=== PATIENT | male | born 1935 | race Caucasian/White ===

== ENCOUNTER 2016-10-10 18:32 | Inpatient (IN) ==
--- NOTE | 2016-10-10 18:47 | Emergency Department Note ---
Disposition Clinical Impression: Cellulitis, Diabetic foot ulcer, DM type 2 (diabetes mellitus, type 2) Disposition: Admitted As Inpatient Condition: Fair Time of Disposition: 19:47 ([facility]) Lower Extremity Injury HPI - General Chief Complaint: ED Extremity Injury, Lower Stated Complaint: foot injury and swelling Time Seen by Provider: 10/10/16 18:33 Source: patient Mode of arrival: ambulatory Limitations: no limitations Nursing Notes Reviewed: Yes Vital Signs Reviewed: Yes - History of Present Illness HPI Narrative: Patient seen earlier this week diagnosis puncture wound of the foot now has an ulceration developing on the plantar aspect that despite being told not to do anything when out and cut the ER denies redness swelling and edema to the right lower extremity patient states pain or tenderness noted but the streaking is coming from the ulceration on the plantar aspect of the foot he denies though any other injury or complaint diabetic Injury location: Right foot Onset (ago): day(s) (3) Mechanism of Injury: other (Foot ulcerations) Context: walking Place: home, street/outdoors Pain Severity: moderate Pain Scale: 5 Improves with: nothing Worsens with: weight bearing, movement Associated symptoms: Reports: able to partially bear weight, swelling Treatments prior to arrival: other (antibiotics) - Related Data Home Medications Medication Instructions Recorded Confirmed Glimepiride [Amaryl] 4 mg PO DAILY 09/10/15 10/10/16 Torsemide [Demadex] 20 mg PO DAILY 01/21/16 10/10/16 Previous Rx's Medication Instructions Recorded Amoxicillin/Clavulanate [Augmentin] 500 mg PO BIDWM #20 tablet 10/09/16 HydrOXYzine Pamoate [Vistaril] 50 mg PO HS #7 capsule 10/09/16 Tramadol HCl [Ultram] 50 mg PO QID PRN #10 tab 10/09/16 Allergies Allergy/AdvReac Type Severity Reaction Status Date / Time No Known Allergies Allergy Verified 01/21/16 09:30 All systems ED: reviewed and negative except as stated. Review of Systems: As Per HPI Constitutional: Denies: fever, chills, weakness Eyes: Denies: eye pain ENT ED: Denies: congestion Cardiovascular: Denies: chest pain Respiratory: Denies: cough Gastrointestinal: Denies: abdominal pain Genitourinary: Denies: urgency Musculoskeletal: Reports: arthralgia, myalgia Integumentary: Reports: lesions Neurological: Denies: headache Psychiatric: Denies: anxiety Endocrine: Denies: fatigue Hematological/Lymphatic: Denies: easy bleeding Allergic/Immunologic: Denies: facial swelling Past Medical History - Past Medical History Attestation: Yes The following information was validated with the patient. Source: patient, old records reviewed, nursing notes reviewed Medical history: Reports: arthritis, coronary artery disease, diabetes, GERD, hyperlipidemia, hypertension, myocardial infarction, peripheral artery disease Surgical history: Reports: appendectomy, coronary bypass (CABG), herniorrhaphy, LE vascular intervention, orthopedic, other (Left hand surgery, left great toe amputation, right great toe partial amputation) Psychiatric history: Reports: no psych history - Social History Smoking Status: Never smoker Smokeless Tobacco Status: No Alcohol use: Reports: none Drug use: Reports: none Physical Exam - General Limitations: no limitations General appearance: alert, in no apparent distress - Head Head exam: atraumatic, normocephalic, normal inspection - Eye Eye exam: Present: normal appearance, PERRL, EOMI - ENT ENT exam: normal exam, normal oropharynx, mucous membranes moist, normal external ear exam - Neck Neck exam: Present: normal inspection, full ROM, trachea midline - Chest Chest inspection: Present: normal inspection, symmetric chest wall rise - Respiratory Respiratory exam: Present: normal lung sounds bilaterally - Cardiovascular Cardiovascular exam: Present: regular rate, normal rhythm, normal heart sounds - Abdominal Exam Abdominal exam: Present: soft, Non-Tender, normal bowel sounds. Absent: mass, pulsatile mass - Expanded Upper Extremity Exam Shoulder exam: Present: normal inspection, full ROM Arm exam: Present: normal inspection, full ROM Elbow exam: Present: normal inspection, full ROM Forearm/Wrist exam: Present: normal inspection, full ROM Hand exam: Present: normal inspection, full ROM Neurosensory exam: Normal: radial nerve, ulnar nerve, median nerve Vascular exam: Normal: capillary refill, radial pulse, ulnar pulse - Expanded Lower Extremity Exam Hip/Pelvis exam: Present: normal inspection, full ROM Upper leg exam: Present: normal inspection, full ROM Knee exam: Present: normal inspection, full ROM Lower leg exam: Present: normal inspection, full ROM, swelling, erythema. Absent: Homans' sign Ankle exam: Present: normal inspection, full ROM, tenderness, swelling, erythema Foot/toe exam: Present: normal inspection, full ROM, tenderness, swelling, erythema 1 - Semicircular circular ulcer on the plantar aspect of the hook through the dermis extending down into the deep dermal tissue into the fatty tissue Neurovascular/Tendon exam: Present: normal capillary refill, normal fine/light touch. Absent: motor deficit, sensory deficit, tendon deficit - Back Exam Back exam: Present: normal inspection, full ROM. Absent: muscle spasm - Neurological Exam Neurological exam: Present: alert, oriented X3, CN II-XII intact - Psychiatric Psychiatric exam: Present: normal affect, normal mood - Skin Skin exam: Present: warm, dry, intact, normal color Course Course Narrative: Patient seen and examined vancomycin and discharged home in stable Vital Signs Temperature 98.1 F 10/10/16 18:33 Pulse Rate 73 10/10/16 18:33 Respiratory Rate 16 10/10/16 18:33 Blood Pressure 147/66 10/10/16 18:33 O2 Sat by Pulse Oximetry 97 10/10/16 18:33 Temperature 98.1 F 10/10/16 18:33 Pulse Rate 58 10/10/16 19:37 Respiratory Rate 16 10/10/16 19:57 Blood Pressure 146/77 10/10/16 19:57 O2 Sat by Pulse Oximetry 97 10/10/16 19:37 Oxygen Delivery Oxygen Delivery Room Air Extremity Injury, Lower - MDM Narrative Medical decision making narrative: Cellulitis as a result of failed outpatient therapy due to the patient being noncompliant out mowing the yard and a lot of walking having redness and streaking up the leg - Differential Diagnosis Likely: puncture wound - Medical Records Medical records reviewed: Yes I reviewed the patient's medical records. - Lab Data Lab results reviewed: Yes I reviewed the patient's lab results. Result diagrams: 10/10/16 19:20 10/10/16 19:20 Lab Results 10/10/16 10/10/16 10/10/16 Range/Units 19:20 19:20 19:20 WBC 5.4 (4.3-11.1) K/mcL RBC 4.02 L (4.19-5.50) M/mcL Hgb 11.7 L (12.9-16.9) g/dL Hct 35.5 L (37.5-50.1) % MCV 88.3 (83.0-100.0) fL MCH 29.1 (28.0-33.3) pg MCHC 33.0 (31.6-35.5) g/dL RDW 12.7 (11.5-14.5) % Plt Count 115 L (140-400) K/mcL MPV 13.3 H (9.4-12.4) fL Immature Gran % 0.2 (0-4) % Seg Neutrophils % 53.5 % Lymphocytes % 33.5 % Monocytes % 10.7 % Eosinophils % 1.7 % Basophils % 0.4 % Neutrophils # 2.9 (1.6-8.9) K/mcL Lymphocytes # 1.8 (0.6-4.6) K/mcL Monocytes # 0.6 (0.0-1.3) K/mcL Eosinophils # 0.1 (0.0-0.6) K/mcL Basophils # 0.0 (0.0-0.2) K/mcL PT 12.5 H (9.4-12.1) Seconds INR 1.2 APTT 29.8 (26.0-36.0) Seconds Sodium 139 (136-145) mEq/L Potassium 4.3 (3.5-4.5) mEq/L Chloride 108 (98-109) mEq/L Carbon Dioxide 22 (19-29) mEq/L BUN 20 (8-26) mg/dL Creatinine 0.95 (0.72-1.25) mg/dL Est GFR ( Amer) > 60 (> 60) Est GFR (Non-Af Amer) > 60 (> 60) BUN/Creatinine Ratio 21 (6-26) Glucose 177 H (70-99) mg/dL Calculated Osmolality 295 (280-300) Calcium 8.7 (8.6-10.8) mg/dL Critical Care Time Critical Care Time: No
[2016-10-10] MEDS ORDERED: Vancomycin 1,000 MG in D5% in Water 250 ML IVPB ONE (19:11)
[2016-10-10] MEDS ORDERED: 0.9 % Sodium Chloride 1,000 ML IVC SCH (19:15)
[2016-10-10 19:33] LABS: Basophils % 0.4 %; Eosinophils # 0.1 K/mcL (0.0-0.6); Eosinophils % 1.7 %; Hematocrit 35.5 % (37.5-50.1); Hemoglobin 11.7 g/dL (12.9-16.9); Immature Granulocytes % 0.2 % (0-4); Lymphocytes # 1.8 K/mcL (0.6-4.6); Lymphocytes % 33.5 %; Mean Corpuscular Hemoglobin 29.1 pg (28.0-33.3); Mean Corpuscular Volume 88.3 fL (83.0-100.0); Mean Platelet Volume 13.3 fL (9.4-12.4); Monocytes # 0.6 K/mcL (0.0-1.3); Monocytes % 10.7 %; Neutrophils # 2.9 K/mcL (1.6-8.9); Platelet Count 115 K/mcL (140-400); Red Blood Count 4.02 M/mcL (4.19-5.50); Red Cell Distribution Width 12.7 % (11.5-14.5); Segmented Neutrophils % 53.5 %
[2016-10-10 19:38] LABS: INR 1.2; Prothrombin Time 12.5 Seconds (9.4-12.1)
[2016-10-10 19:41] LABS: Activated Partial Thrombo Time 29.8 Seconds (26.0-36.0)
[2016-10-10 19:48] LABS: BUN/Creatinine Ratio 21 (6-26); Blood Urea Nitrogen 20 mg/dL (8-26); Calcium 8.7 mg/dL (8.6-10.8); Carbon Dioxide 22 mEq/L (19-29); Chloride 108 mEq/L (98-109); Glucose 177 mg/dL (70-99); Osmolality,Calculated 295 (280-300); Potassium 4.3 mEq/L (3.5-4.5); Sodium 139 mEq/L (136-145); eGFR For African Americans > 60 (> 60); eGFR For Non-African Americans > 60 (> 60)
[2016-10-10] MEDS ORDERED: Dextrose Gel 15 GM PO PRN ×2 (20:54)
[2016-10-10] MEDS ORDERED: Naloxone 0.4 MG/ML INJ IVP PRN (20:54)
[2016-10-10] MEDS ORDERED: *HR* Dextrose 50 % in Water (Syg) 50 ML SYRINGE IVP PRN (20:54)
[2016-10-10] MEDS ORDERED: traMADol 50 MG TABLET PO PRN (20:54)
[2016-10-10] MEDS ORDERED: D5% in Water 1,000 ML IVC PRN (20:54)
[2016-10-10] MEDS ORDERED: Ondansetron ODT 4 MG TAB.RAPDIS SL PRN (20:54)
[2016-10-11] MEDS: 0.9 % Sodium Chloride 1,000 ML IVC SCH ×2 (03:35→07:15)
[2016-10-11] MEDS: hydrOXYzine pamoate 25 MG CAPSULE PO SCH ×2 (03:35→21:49)
[2016-10-11 05:40] LABS: Basophils % 0.3 %; Eosinophils # 0.1 K/mcL (0.0-0.6); Eosinophils % 2.3 %; Hematocrit 33.9 % (37.5-50.1); Immature Granulocytes % 0.3 % (0-4); Lymphocytes # 1.4 K/mcL (0.6-4.6); Lymphocytes % 39.4 %; Mean Corpuscular HGB Conc 32.4 g/dL (31.6-35.5); Mean Corpuscular Hemoglobin 28.9 pg (28.0-33.3); Mean Corpuscular Volume 89.2 fL (83.0-100.0); Mean Platelet Volume 13.3 fL (9.4-12.4); Monocytes # 0.4 K/mcL (0.0-1.3); Monocytes % 10.9 %; Neutrophils # 1.6 K/mcL (1.6-8.9); Red Cell Distribution Width 12.9 % (11.5-14.5); Segmented Neutrophils % 46.8 %
[2016-10-11 05:43] LABS: Platelet Count 98 K/mcL (140-400)
[2016-10-11 05:59] LABS: BUN/Creatinine Ratio 18 (6-26); Blood Urea Nitrogen 15 mg/dL (8-26); Calcium 8.2 mg/dL (8.6-10.8); Carbon Dioxide 22 mEq/L (19-29); Chloride 111 mEq/L (98-109); Glucose 135 mg/dL (70-99); Osmolality,Calculated 295 (280-300); Potassium 3.9 mEq/L (3.5-4.5); Sodium 141 mEq/L (136-145); eGFR For African Americans > 60 (> 60); eGFR For Non-African Americans > 60 (> 60)
[2016-10-11] MEDS: Insulin LISPRO 300 UNITS/3 ML VIAL SQ SCH ×3 (07:14→15:33)
[2016-10-11] MEDS: Torsemide 20 MG TABLET PO SCH (08:10)
[2016-10-11] MEDS: *HR* Glimepiride 2 MG TABLET PO SCH (08:10)
--- NOTE | 2016-10-11 10:38 | Internal Med History&Physical ---
Date of Encounter: 10/11/16 Time of Encounter: 10:10 Assessment and Plan (1) Puncture wound of foot Current visit: No Status: Acute He received tetanus injection in the emergency room October 09. He has been started on IV vancomycin. Will add IV Zosyn. I will order MRI to rule out osteomyelitis from chronic right foot ulcer. Qualifiers: Encounter type: initial encounter Laterality: right Qualified Code(s): S91.331A - Puncture wound without foreign body, right foot, initial encounter (2) DM type 2 (diabetes mellitus, type 2) Current visit: Yes Status: Chronic Will order hemoglobin A1c. Continue Amaryl and Accu-Cheks with SSI. 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 Qualifiers: Hypertension type: essential hypertension Qualified Code(s): I10 - Essential (primary) hypertension (4) Anemia Current visit: Yes Status: Acute We will order anemia testing in a.m. Qualifiers: Anemia type: unspecified type Qualified Code(s): D64.9 - Anemia, unspecified Internal Medicine - H&P: HPI Chief complaint: Right foot infection Admitted From: Home Plans for Post Hospital Care: Home History of present illness: Mr. Hadley is a 81 year old male who came to emergency room after a right foot infection was unimproved on outpatient therapy. He had been seen in the emergency room October 09 for evaluation of a right foot nail puncture wound that occurred on October 07. He was prescribed Augmentin. He felt the foot was becoming more red, swollen and painful so returned to emergency room. He was admitted to [facility] floor for IV antibiotics for cellulitis. His musk skeletal history is significant for having left great toe amputation several years ago. He has DJD but denies gout or other bone joint or muscle disorders. He states he has had a ulcer on the right first MTP plantar area for approximately one month. Past Med Surg Social Fam HX - Past Medical History Medical history: arthritis, coronary artery disease, diabetes, GERD, hyperlipidemia, hypertension, myocardial infarction, peripheral artery disease Psychiatric history: no psych history - Past Surgical History Surgical History: appendectomy, coronary bypass (CABG), herniorrhaphy, LE vascular intervention, orthopedic, other - Social History Smoking Status: Never smoker Smokeless Tobacco Status: No Alcohol use: none Drug use: none - Family History Father Living Status: Age at : 78 Hx Family Cardiac Disorders: Yes Mother History Unknown: Yes Living Status: Internal Medicine - H&P: Meds Glimepiride [Amaryl] 4 mg PO DAILY 09/10/15 [History] Torsemide [Demadex] 20 mg PO DAILY 01/21/16 [History] Amoxicillin/Clavulanate [Augmentin] 500 mg PO BIDWM #20 tablet 10/09/16 [Rx] HydrOXYzine Pamoate [Vistaril] 50 mg PO HS #7 capsule 10/09/16 [Rx] Tramadol HCl [Ultram] 50 mg PO QID PRN #10 tab 10/09/16 [Rx] 3 Allergy/AdvReac Type Severity Reaction Status Date / Time No Known Allergies Allergy Verified 01/21/16 09:30 All Systems PM: A 10-system review of systems was performed and is negative for pertinent findings except as documented above in the HPI. Review of systems: Gen.: His weight has been stable over the past year Cardiovascular: He has history of hypertension. He has known ASHD status post 4 vessel CABG approximately 2011. He reports an EST 2016 was negative. He denies heart failure DVT or pulmonary embolus Respiratory: He smoked from age [age] up to 1 pack per day. He denies chronic lung disease and does not use home oxygen. GI: Denies disorders of his liver gallbladder or exocrine pancreas : He denies hematuria dysuria or kidney stones Neurologic: He denies large distribution strokes or seizures. 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 He has hyperlipidemia but denies thyroid disease Hematology/oncology: He has had skin cancer removal from his face but denies internal malignancies. He was unaware he had anemia on blood work in the emergency room. Anemia testing in 2014 showed no factor deficiency. Psychiatric: He denies anxiety or depression or other mental health issues Musk skeletal: He has DJD but no known gout or other bone joint or muscle disorders. - Constitutional Vitals: Temp Pulse Resp BP Pulse Ox 97.9 F 58 18 160/84 97 10/11/16 06:53 10/11/16 06:53 10/11/16 06:53 10/11/16 06:53 10/11/16 06:53 Exam: Gen.: He is a well-developed well-nourished male lying quietly in bed in no acute distress HEENT: Head is atraumatic and normocephalic. Eyes: EOMI. There is no scleral icterus. Mouth: Mucosa is moist. Neck: Supple and nontender. There is no thyromegaly or adenopathy noted. Heart: Regular without murmurs gallops or ectopics Lungs: No wheezes or crackles are heard. Abdomen: Soft and nontender. No masses or guarding are noted. Extremities: He has had amputation of the left great toe. Dorsalis pedis and posttibial pulses on the left foot are trace to 1+ palpable. There is no edema of the left foot and leg. The right foot shows increased warmth and erythema compared to the left foot. There is 1-2+ edema of the dorsum of the right foot and lower leg. There is chronic venous stasis pigmentation changes on the dorsolateral portion of the right foot. He has mild DJD changes of his hands. Neurologic: Mental status: He is talkative and a good historian. Cranial nerves : Smile is symmetric. Forehead wrinkles bilaterally. Tongue protrudes midline. EOMI. Motor: There is no pronator drift. Cerebellar: Finger to nose is intact bilaterally. Skin: Warm and dry Internal Med - H&P Results - Labs CBC & Chem 7: 10/11/16 05:28 10/11/16 05:28 Labs: Short CBC 10/11/16 Range/Units 05:28 WBC 3.5 L (4.3-11.1) K/mcL Hgb 11.0 L (12.9-16.9) g/dL Hct 33.9 L (37.5-50.1) % Plt Count 98 L (140-400) K/mcL Neutrophils # 1.6 (1.6-8.9) K/mcL BMP 10/11/16 05:28 Sodium 141 Potassium 3.9 Chloride 111 H Carbon Dioxide 22 BUN 15 Creatinine 0.84 Glucose 135 H Calcium 8.2 L
[2016-10-11] MEDS ORDERED: Vancomycin 1,000 MG in D5% in Water 250 ML IVPB ONE (21:00)
[2016-10-11] MEDS: Lisinopril 20 MG TABLET PO SCH (21:49)
[2016-10-11] MEDS: Piperacillin/Tazobactam 3.375 GM in D5% in Water (Mini-Bag+) 100 ML IVPB SCH (21:52)
[2016-10-12] MEDS: *HR* Enoxaparin 40 MG/0.4 ML SYRINGE SQ SCH (06:51)
[2016-10-12] MEDS: Piperacillin/Tazobactam 3.375 GM in D5% in Water (Mini-Bag+) 100 ML IVPB SCH ×3 (06:51→22:41)
[2016-10-12] MEDS: Insulin LISPRO 300 UNITS/3 ML VIAL SQ SCH ×3 (07:27→17:01)
[2016-10-12] MEDS ORDERED: Aminoglycoside Consult 1 EACH MC ONE (07:30)
[2016-10-12] MEDS ORDERED: Vancomycin 1,250 MG in D5% in Water 250 ML IVPB SCH (07:30)
[2016-10-12] MEDS: Torsemide 20 MG TABLET PO SCH (07:55)
[2016-10-12] MEDS: *HR* Glimepiride 2 MG TABLET PO SCH (07:55)
[2016-10-12] MEDS: Lisinopril 20 MG TABLET PO SCH (07:55)
[2016-10-12] MEDS: Vancomycin 1,250 MG in D5% in Water 250 ML IVPB SCH ×2 (08:33→19:55)
[2016-10-12 10:01] LABS: Hemoglobin A1C 6.7 %
[2016-10-12 10:06] LABS: % Iron Saturation 20 % (20-55); Iron 47 mcg/dL (65-175); Transferrin 171 mg/dL (174-364)
--- NOTE | 2016-10-12 10:06 | Internal Med Progress Note ---
Date of Encounter: 10/12/16 Time of Encounter: 10:00 - Assessment and plan (1) Puncture wound of foot Current Visit: No Status: Acute Assessment and plan: October 12. Continue IV vancomycin and Zosyn. There was no evidence of osteomyelitis or abscess on the MRI. Anticipate discharge home tomorrow with oral antibiotics if stable. Qualifiers: Encounter type: initial encounter Laterality: right Qualified Code(s): S91.331A - Puncture wound without foreign body, right foot, initial encounter (2) DM type 2 (diabetes mellitus, type 2) Current Visit: Yes Status: Chronic Assessment and plan: October 12. Hemoglobin A1c is pending. Accu-Cheks are acceptable. Continue Amaryl and SSI. 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 Continue Demadex Qualifiers: Hypertension type: essential hypertension Qualified Code(s): I10 - Essential (primary) hypertension (4) Anemia Current Visit: Yes Status: Acute Assessment and plan: October 12. Anemia testing is pending Qualifiers: Anemia type: unspecified type Qualified Code(s): D64.9 - Anemia, unspecified - Subjective Interval history: October 12. He has no new complaints and states he feels better. - Constitutional Vitals: Temp Pulse Resp BP Pulse Ox 97.7 F 59 17 136/56 97 10/12/16 07:26 10/12/16 07:26 10/12/16 07:26 10/12/16 07:26 10/12/16 07:26 Exam: He is resting comfortably in bed and appears in no acute distress. There is decreased erythema and edema of the right foot. Reviewed his medications and lab results. I reviewed his MRI report Internal Medicine: Result - Labs CBC & Chem 7: 10/11/16 05:28 10/11/16 05:28 - ABG Interpretation ABG results: PT/INR, D-dimer PT 12.5 Seconds (9.4-12.1) H 10/10/16 19:20 Consult Discharge Plan - Plan Referrals: Kalen Langston, SHEAR GRINDER OPERATOR [Primary Care Provider] -
[2016-10-12 10:38] LABS: Ferritin 169 ng/ml (22-275)
[2016-10-12 10:55] LABS: Folate 11.4 ng/mL (7.0-31.4)
[2016-10-12] MEDS: hydrOXYzine pamoate 25 MG CAPSULE PO SCH (19:54)
[2016-10-12] MEDS: Lactobacillus 1 EACH CAP.SPRINK PO SCH (19:55)
[2016-10-13] MEDS: *HR* Enoxaparin 40 MG/0.4 ML SYRINGE SQ SCH (06:20)
[2016-10-13] MEDS: Piperacillin/Tazobactam 3.375 GM in D5% in Water (Mini-Bag+) 100 ML IVPB SCH (06:20)
[2016-10-13 06:25] VITALS: BP 161/77
[2016-10-13] MEDS: Insulin LISPRO 300 UNITS/3 ML VIAL SQ SCH (07:27)
[2016-10-13] MEDS: Torsemide 20 MG TABLET PO SCH (08:44)
[2016-10-13] MEDS: Lactobacillus 1 EACH CAP.SPRINK PO SCH (08:44)
[2016-10-13] MEDS: *HR* Glimepiride 2 MG TABLET PO SCH (08:44)
[2016-10-13] MEDS: Lisinopril 20 MG TABLET PO SCH (08:45)
--- NOTE | 2016-10-13 09:44 | Discharge Summary ---
Date of Encounter: 10/13/16 Time of Encounter: 09:35 - Discharge Diagnosis (1) Puncture wound of foot Priority: Primary Status: Acute Qualifiers: Encounter type: initial encounter Laterality: right Qualified Code(s): S91.331A - Puncture wound without foreign body, right foot, initial encounter (2) DM type 2 (diabetes mellitus, type 2) Priority: Secondary Status: Chronic Qualifiers: Diabetes mellitus complication status: without complication Diabetes mellitus half-way insulin use: without half-way use Qualified Code(s): E11.9 - Type 2 diabetes mellitus without complications (3) Hypertension Priority: Secondary Status: Chronic Qualifiers: Hypertension type: essential hypertension Qualified Code(s): I10 - Essential (primary) hypertension (4) Anemia Priority: Secondary Status: Acute Qualifiers: Anemia type: unspecified type Qualified Code(s): D64.9 - Anemia, unspecified - Discharge Medications Prescriptions: Lactobacillus [Culturelle] 1 each PO BID #20 cap.sprink Home Medications: Glimepiride [Amaryl] 4 mg PO DAILY 09/10/15 [History] Torsemide [Demadex] 20 mg PO DAILY 01/21/16 [History] Amoxicillin/Clavulanate [Augmentin] 500 mg PO BIDWM #20 tablet 10/09/16 [Rx] HydrOXYzine Pamoate [Vistaril] 50 mg PO HS #7 capsule 10/09/16 [Rx] Tramadol HCl [Ultram] 50 mg PO QID PRN #10 tab 10/09/16 [Rx] Lactobacillus [Culturelle] 1 each PO BID #20 cap.sprink 10/13/16 [Rx] Allergies/Adverse Reactions: 3 Allergy/AdvReac Type Severity Reaction Status Date / Time No Known Allergies Allergy Verified 01/21/16 09:30 Date of admission: 10/11/16 13:52 Primary care physician: Kalen Langston CNP - Patient Status Disposition: Home Health Service Condition: Fair Overall status at discharge: patient is progressing back to baseline - Discharge Instructions Follow Up With: Kalen Langston CNP [Primary Care Provider] - - Diet and Activity Activity: resume usual activities as tolerated Diet: diabetic diet Hospital course: Mr. Hadley is a 81 year old male who came to emergency room after a right foot infection was unimproved on outpatient therapy. He had been seen in the emergency room October 09 for evaluation of a right foot nail puncture wound that occurred on October 07. He was prescribed Augmentin. He felt the foot was becoming more red, swollen and painful so returned to emergency room. He was admitted to [facility] for IV antibiotics for cellulitis. Initial orders were written by the emergency room physician. I saw him on October 11 and performed a history and physical. He was started on IV vancomycin and Zosyn. He had significant clinical improvement with decrease in erythema and edema of the right foot. A MRI of the right foot showed no evidence of abscess or osteomyelitis. On October 13 he felt stable for discharge home. He will continue with Augmentin as prescribed through emergency room on October 09. I added Lactobacillus. He will follow with his PCP within one week. Anemia testing showed no factor deficiency. Hemoglobin A1c was satisfactory at 6.7%. - Time Spent with Patient Total time spent providing and/or coordinating discharge services: - Constitutional Vitals: Temp Pulse Resp BP Pulse Ox 97.4 F L 54 18 161/77 94 10/13/16 06:25 10/13/16 06:25 10/13/16 06:25 10/13/16 06:25 10/13/16 06:25
--- NOTE | 2016-10-13 09:49 | Physician Discharge Referral ---
Home Health/Hosp Referral Info Transfer to: Home Health Attending Provider: Yasir Provider in Charge Post Discharge: PCP (Kalen Langston CNP) - Diagnosis (1) Puncture wound of foot Priority: Primary Status: Acute (2) DM type 2 (diabetes mellitus, type 2) Priority: Secondary Status: Chronic (3) Hypertension Priority: Secondary Status: Chronic (4) Anemia Priority: Secondary Status: Acute - Respiratory Orders Smoking Cessation: Smoking cessation has been advised. For more information, call the [place] Tobacco Quit Line at 6-994-DKNU-NOW. - Diet/Nutrition Diet/Nutrition Orders: No Concentrated Sweets - Activity Activity Orders: Ambulate - Services Needed Following services are medically necessary services: Nursing, Home Health Aide, Physical Therapy, Occupational Therapy - Transfer Medications Prescriptions: Lactobacillus [Culturelle] 1 each PO BID #20 cap.sprink Home Medications: Glimepiride [Amaryl] 4 mg PO DAILY 09/10/15 [History] Torsemide [Demadex] 20 mg PO DAILY 01/21/16 [History] Amoxicillin/Clavulanate [Augmentin] 500 mg PO BIDWM #20 tablet 10/09/16 [Rx] HydrOXYzine Pamoate [Vistaril] 50 mg PO HS #7 capsule 10/09/16 [Rx] Tramadol HCl [Ultram] 50 mg PO QID PRN #10 tab 10/09/16 [Rx] Lactobacillus [Culturelle] 1 each PO BID #20 cap.sprink 10/13/16 [Rx] Allergies/Adverse Reactions: 3 Allergy/AdvReac Type Severity Reaction Status Date / Time No Known Allergies Allergy Verified 01/21/16 09:30 Certification: Further, I certify that my clinical findings support that this patient is homebound (i.e. absences from home require considerable and taxing effort and are for medical reasons or jew services or infrequently or short duration when for other reasons) because: Homebound Reason: Leaving home requires considerable and taxing effort due to condition (Impaired walking ability secondary to puncture wound and cellulitis of right foot) Attestation: My signature below is to certify that this patient is under my care and that I, or nurse practitioner, or a physician's research assistant professor working with me, has a face-to -face encounter with this patient.
== END 2016-10-13 11:20 | disposition home health service (06) | DRG 638 ==
LOC: EMEROOPIK 18:32 → INPPIK 18:32
PROVIDERS: ADMIT Internal Medicine; ATTEND Internal Medicine

== ENCOUNTER 2018-02-18 13:30 | Observation (INO) ==
[2018-02-18] MEDS ORDERED: Aspirin 81 MG TAB.CHEW PO ONE (13:32)
--- NOTE | 2018-02-18 13:48 | Emergency Department Note ---
Disposition Clinical Impression: CHF exacerbation Disposition: Admitted As Inpatient Condition: Good Time of Disposition: 15:00 Chest Pain HPI - General Chief Complaint: ED Chest Pain Stated Complaint: shortness of breath, chest pain Time Seen by Provider: 02/18/18 13:48 Source: patient Mode of arrival: ambulatory Limitations: no limitations - History of Present Illness HPI Narrative: 82-year-old gentleman who presents today with chest tightness and pain between his shoulder blades. He states he has had this once before and it was CHF. He states he was seen earlier today given oral Lasix and one try that at home but is getting worse at home and not feeling well. He states he feels more short of breath now. He states the penetration verbalizes rectally worse. He is back because the symptoms are not improving. He states he has not had a fever he has not had much of a productive cough. He states that his legs are not swollen. He states that otherwise he been feeling okay. Pt complaint: chest pain Severity scale (1-10): 8 - Related Data Home Medications Medication Instructions Recorded Confirmed Glimepiride [Amaryl] 4 mg PO DAILY 09/10/15 02/18/18 Previous Rx's Medication Instructions Recorded Aspirin 81 mg PO DAILY #30 tab.chew 01/05/17 Atorvastatin [Lipitor] 20 mg PO HS #30 tablet 01/05/17 Furosemide [Lasix] 20 mg PO DAILY #30 tablet 01/05/17 HYDROcodone/Acet 5/325 mg [[place] 1 tab PO Q6HR PRN #20 tablet 01/05/17 5-325 mg] Metoprolol XL (24 HR) Succ [Toprol 12.5 mg PO DAILY #30 tab.er.24h 01/05/17 Xl] Doxycycline 100 mg PO BID #14 capsule 02/07/18 Nystatin/Triamcinolone CRM 1 appl TP BID #1 tube 02/07/18 [Mycolog] Albuterol Sulfate [Albuterol 2 puff IH Q6HR PRN #1 hfa.aer.ad 02/18/18 Inhaler] Amoxicillin/Clavulanate [Augmentin] 875 mg PO BIDWM #20 tablet 02/18/18 Brompheniramine/Pseudoephed/Dm 5 ml PO Q4-6H PRN #120 syrup 02/18/18 [Bromfed Dm Cough Syrup] predniSONE [PredniSONE] 40 mg PO DAILY #10 tablet 02/18/18 Allergies Allergy/AdvReac Type Severity Reaction Status Date / Time No Known Allergies Allergy Verified 02/18/18 05:42 Review of Systems: All other systems are negative except as noted/marked Chart generated with voice recognition software Nursing notes reviewed Old records reviewed Chest Pain PMH - Past Medical History Medical history: Reports: arthritis, atrial fibrillation, CHF, COPD, coronary artery disease, diabetes, hyperlipidemia, hypertension, myocardial infarction, valvular heart disease Surgical history: Reports: appendectomy, coronary bypass (CABG), herniorrhaphy, LE vascular intervention, orthopedic, other Psychiatric history: Reports: no psych history - Social History Smoking Status: Never smoker Alcohol use: Reports: none Drug use: Reports: none Physical Exam General: Mild distress, VSS Head: normocephalic, atraumatic Eyes: EOMI, PERRLA mouth: Dry mucous membranes Neck: NO CLA, Supple Chest wall: normal rise, no crepitus, no deformity noted Lungs: Diminished lung sounds bilaterally with rales in the left lower base Heart: Accurate cardiac irregular Abd: soft, nontender, BS normal : deferred MSK: strength equal in all four extremities Ext: moves all four extremities, no obvious deformities no pedal edema Skin: cap refill normal, warm, dry neuro : CN2-12 grossly intact, A&Ox3 Psych: normal affect, not anxious - General Limitations: no limitations General appearance: alert, in no apparent distress Course Vital Signs Temperature 98.9 F 02/18/18 13:32 Pulse Rate 117 02/18/18 13:32 Respiratory Rate 18 02/18/18 13:32 Blood Pressure 138/97 02/18/18 13:32 O2 Sat by Pulse Oximetry 94 02/18/18 13:32 Temperature 98.9 F 02/18/18 13:32 Pulse Rate 103 02/18/18 14:54 Respiratory Rate 17 02/18/18 14:54 Blood Pressure 135/76 02/18/18 14:54 O2 Sat by Pulse Oximetry 95 02/18/18 14:54 Oxygen Delivery Oxygen Delivery Nasal Cannula Chest Pain - MDM Narrative Medical decision making narrative: 82-year-old male who presents today stating that he has worsening tightness in his chest and pain between his shoulder blades racing season CHF. Has had that before. He was seen earlier today and given by mouth Lasix and he wanted to try that at home. He states he did urinate a lot but he still feels like he is getting more short of breath and he came back in. He is tachycardic and hypoxic on arrival. After 250 ML's of fluid and then 40 mg of IV Lasix he is feeling a little bit better and his vital signs are improving. He does have CHF and his troponins negative. Patient is much more comfortable at this time. I discussed with him is comfortable staying in the hospital and spoke with the hospitalist who agreed that he could stay here to get diuresed. - Medical Records Medical records reviewed: Yes I reviewed the patient's medical records. - Lab Data Lab results reviewed: Yes I reviewed the patient's lab results. Result diagrams: 02/18/18 13:42 02/18/18 13:42 Lab Results 02/18/18 02/18/18 02/18/18 Range/Units 13:42 13:42 13:42 WBC 10.5 (4.3-11.1) K/mcL RBC 4.63 (4.19-5.50) M/mcL Hgb 13.1 (12.9-16.9) g/dL Hct 40.9 (37.5-50.1) % MCV 88.3 (83.0-100.0) fL MCH 28.3 (28.0-33.3) pg MCHC 32.0 (31.6-35.5) g/dL RDW 13.4 (11.5-14.5) % Plt Count 109 L (140-400) K/mcL MPV 13.2 H (9.4-12.4) fL Immature Gran % 0.7 (0-4) % Seg Neutrophils % 89.3 % Lymphocytes % 4.7 % Monocytes % 5.1 % Eosinophils % 0.1 % Basophils % 0.1 % Neutrophils # 9.4 H (1.6-8.9) K/mcL Lymphocytes # 0.5 L (0.6-4.6) K/mcL Monocytes # 0.5 (0.0-1.3) K/mcL Eosinophils # 0.0 (0.0-0.6) K/mcL Basophils # 0.0 (0.0-0.2) K/mcL PT 14.0 H (9.4-12.1) Seconds INR 1.2 APTT 32.6 (26.0-36.0) Seconds Sodium (136-145) mEq/L Potassium (3.5-5.1) mEq/L Chloride (98-107) mEq/L Carbon Dioxide (23-29) mEq/L BUN (8-23) mg/dL Creatinine (0.70-1.30) mg/dL Est GFR ( Amer) (> 60) Est GFR (Non-Af Amer) (> 60) BUN/Creatinine Ratio (6-26) Glucose (70-105) mg/dL Calculated Osmolality (280-300) Lactic Acid (0.5-2.2) mmol/L Calcium (8.6-10.3) mg/dL Magnesium (1.6-2.6) mg/dL Troponin I (< 0.04) ng/mL B-Natriuretic Peptide 1460 H (Less than 100) pg/mL Urine Color (Yellow) Urine Clarity (Clear) Urine pH (5.0-8.0) pH Units Ur Specific [place] (1.010-1.025) Urine Protein (Neg-Trace) mg/dL Urine Glucose (UA) (Normal) mg/dL Urine Ketones (Negative) mg/dL Urine Blood (Negative) Urine Nitrite (Negative) Urine Bilirubin (Negative) Urine Urobilinogen (Normal) mg/dL Ur Leukocyte Esterase (Negative) Urine Microscopic RBC (0-3) per hpf Urine Microscopic WBC (0-3) per hpf Ur Squamous Epith Cells (None-Few) per lpf Urine Bacteria (None-Few) per hpf Urine Mucus (Few) Ur Culture Indicated? (NO) 02/18/18 02/18/18 02/18/18 Range/Units 13:42 13:42 13:42 WBC (4.3-11.1) K/mcL RBC (4.19-5.50) M/mcL Hgb (12.9-16.9) g/dL Hct (37.5-50.1) % MCV (83.0-100.0) fL MCH (28.0-33.3) pg MCHC (31.6-35.5) g/dL RDW (11.5-14.5) % Plt Count (140-400) K/mcL MPV (9.4-12.4) fL Immature Gran % (0-4) % Seg Neutrophils % % Lymphocytes % % Monocytes % % Eosinophils % % Basophils % % Neutrophils # (1.6-8.9) K/mcL Lymphocytes # (0.6-4.6) K/mcL Monocytes # (0.0-1.3) K/mcL Eosinophils # (0.0-0.6) K/mcL Basophils # (0.0-0.2) K/mcL PT (9.4-12.1) Seconds INR APTT (26.0-36.0) Seconds Sodium 136 (136-145) mEq/L Potassium 4.3 (3.5-5.1) mEq/L Chloride 98 (98-107) mEq/L Carbon Dioxide 27 (23-29) mEq/L BUN 26 H (8-23) mg/dL Creatinine 1.22 (0.70-1.30) mg/dL Est GFR ( Amer) > 60 (> 60) Est GFR (Non-Af Amer) 57 L (> 60) BUN/Creatinine Ratio 21 (6-26) Glucose 336 H (70-105) mg/dL Calculated Osmolality 300 (280-300) Lactic Acid 1.3 (0.5-2.2) mmol/L Calcium 9.4 (8.6-10.3) mg/dL Magnesium 1.8 (1.6-2.6) mg/dL Troponin I < 0.03 (< 0.04) ng/mL B-Natriuretic Peptide (Less than 100) pg/mL Urine Color (Yellow) Urine Clarity (Clear) Urine pH (5.0-8.0) pH Units Ur Specific [place] (1.010-1.025) Urine Protein (Neg-Trace) mg/dL Urine Glucose (UA) (Normal) mg/dL Urine Ketones (Negative) mg/dL Urine Blood (Negative) Urine Nitrite (Negative) Urine Bilirubin (Negative) Urine Urobilinogen (Normal) mg/dL Ur Leukocyte Esterase (Negative) Urine Microscopic RBC (0-3) per hpf Urine Microscopic WBC (0-3) per hpf Ur Squamous Epith Cells (None-Few) per lpf Urine Bacteria (None-Few) per hpf Urine Mucus (Few) Ur Culture Indicated? (NO) 02/18/18 Range/Units 14:05 WBC (4.3-11.1) K/mcL RBC (4.19-5.50) M/mcL Hgb (12.9-16.9) g/dL Hct (37.5-50.1) % MCV (83.0-100.0) fL MCH (28.0-33.3) pg MCHC (31.6-35.5) g/dL RDW (11.5-14.5) % Plt Count (140-400) K/mcL MPV (9.4-12.4) fL Immature Gran % (0-4) % Seg Neutrophils % % Lymphocytes % % Monocytes % % Eosinophils % % Basophils % % Neutrophils # (1.6-8.9) K/mcL Lymphocytes # (0.6-4.6) K/mcL Monocytes # (0.0-1.3) K/mcL Eosinophils # (0.0-0.6) K/mcL Basophils # (0.0-0.2) K/mcL PT (9.4-12.1) Seconds INR APTT (26.0-36.0) Seconds Sodium (136-145) mEq/L Potassium (3.5-5.1) mEq/L Chloride (98-107) mEq/L Carbon Dioxide (23-29) mEq/L BUN (8-23) mg/dL Creatinine (0.70-1.30) mg/dL Est GFR ( Amer) (> 60) Est GFR (Non-Af Amer) (> 60) BUN/Creatinine Ratio (6-26) Glucose (70-105) mg/dL Calculated Osmolality (280-300) Lactic Acid (0.5-2.2) mmol/L Calcium (8.6-10.3) mg/dL Magnesium (1.6-2.6) mg/dL Troponin I (< 0.04) ng/mL B-Natriuretic Peptide (Less than 100) pg/mL Urine Color Yellow (Yellow) Urine Clarity Clear (Clear) Urine pH 5.5 (5.0-8.0) pH Units Ur Specific [place] 1.015 (1.010-1.025) Urine Protein Negative (Neg-Trace) mg/dL Urine Glucose (UA) 100 H (Normal) mg/dL Urine Ketones Trace H (Negative) mg/dL Urine Blood Small H (Negative) Urine Nitrite Negative (Negative) Urine Bilirubin Negative (Negative) Urine Urobilinogen Normal (Normal) mg/dL Ur Leukocyte Esterase Negative (Negative) Urine Microscopic RBC 0-3 (0-3) per hpf Urine Microscopic WBC 0-3 (0-3) per hpf Ur Squamous Epith Cells Few (None-Few) per lpf Urine Bacteria Few (None-Few) per hpf Urine Mucus Few (Few) Ur Culture Indicated? NO (NO) - Radiology Data Radiology results reviewed: Yes I reviewed the patient's radiology results. - EKG Data EKG attestation: Yes I reviewed and interpreted this EKG. EKG results narrative: EKG interpreted by myself as Sinus tach with a rate of 121 and a QTC of [address] elevation Heart Score - Score History: Moderately Suspicious EKG: Non Specific repolarisation Disturbance Age: Greater than 65 Risk Factors: 1-2 risk factors Troponin: Less than normal limit HEART Score Total: 5
[2018-02-18 13:52] LABS: Basophils % 0.1 %; Eosinophils % 0.1 %; Hematocrit 40.9 % (37.5-50.1); Hemoglobin 13.1 g/dL (12.9-16.9); Immature Granulocytes % 0.7 % (0-4); Lymphocytes # 0.5 K/mcL (0.6-4.6); Lymphocytes % 4.7 %; Mean Corpuscular Hemoglobin 28.3 pg (28.0-33.3); Mean Corpuscular Volume 88.3 fL (83.0-100.0); Mean Platelet Volume 13.2 fL (9.4-12.4); Monocytes # 0.5 K/mcL (0.0-1.3); Monocytes % 5.1 %; Neutrophils # 9.4 K/mcL (1.6-8.9); Platelet Count 109 K/mcL (140-400); Red Blood Count 4.63 M/mcL (4.19-5.50); Red Cell Distribution Width 13.4 % (11.5-14.5); Segmented Neutrophils % 89.3 %
[2018-02-18 13:59] LABS: INR 1.2
[2018-02-18] MEDS ORDERED: 0.9 % Sodium Chloride 250 ML IVC ONE (14:00)
[2018-02-18] MEDS ORDERED: Furosemide 40 MG/4 ML VIAL IVP ONE (14:00)
[2018-02-18 14:02] LABS: Activated Partial Thrombo Time 32.6 Seconds (26.0-36.0)
[2018-02-18 14:06] LABS: BUN/Creatinine Ratio 21 (6-26); Blood Urea Nitrogen 26 mg/dL (8-23); Calcium 9.4 mg/dL (8.6-10.3); Carbon Dioxide 27 mEq/L (23-29); Chloride 98 mEq/L (98-107); Glucose 336 mg/dL (70-105); Osmolality,Calculated 300 (280-300); Potassium 4.3 mEq/L (3.5-5.1); Sodium 136 mEq/L (136-145); eGFR For Non-African Americans 57 (> 60)
[2018-02-18 14:10] LABS: Troponin I < 0.03 ng/mL (< 0.04)
[2018-02-18 14:16] LABS: Bilirubin,Urine Negative (Negative); Blood,Urine Small (Negative); Clarity,Urine Clear (Clear); Color,Urine Yellow (Yellow); Glucose,Urine (UA) 100 mg/dL (Normal); Ketones,Urine Trace mg/dL (Negative); Leukocyte Esterase,Urine Negative (Negative); Nitrite,Urine Negative (Negative); PH,Urine 5.5 pH Units (5.0-8.0); Protein,Urine Negative (Neg-Trace); Specific Gravity,Urine 1.015 (1.010-1.025); Urobilinogen,Urine Normal (Normal)
[2018-02-18 14:26] LABS: RBC,Urine 0-3 per hpf (0-3); Squamous Epithelial Cell,Urine Few per lpf (None-Few); WBC,Urine 0-3 per hpf (0-3)
[2018-02-18 14:27] LABS: Bacteria,Urine Few per hpf (None-Few); Mucus,Urine Few (Few)
[2018-02-18] MEDS ORDERED: Acetaminophen 325 MG TABLET PO PRN (14:55)
[2018-02-18] MEDS ORDERED: Naloxone 0.4 MG/ML INJ IVP PRN (14:55)
[2018-02-18] MEDS ORDERED: *HR* HYDROcodone/Acet 5/325 mg TABLET PO PRN ×2 (14:55)
[2018-02-18] MEDS ORDERED: Dextrose Gel 15 GM/37.5 ML TUBE PO PRN ×2 (21:23)
[2018-02-18] MEDS ORDERED: *HR* Dextrose 50 % in Water (Syg) 50 ML SYRINGE IVP PRN (21:23)
[2018-02-18] MEDS ORDERED: D5% in Water 1,000 ML IVC PRN (21:23)
[2018-02-18] MEDS ORDERED: Insulin LISPRO 300 UNITS/3 ML VIAL SQ SCH (21:30)
[2018-02-19 02:01] LABS: Hematocrit 37.5 % (37.5-50.1); Hemoglobin 12.3 g/dL (12.9-16.9); Immature Granulocytes % 0.5 % (0-4); Lymphocytes # 0.9 K/mcL (0.6-4.6); Lymphocytes % 9.4 %; Mean Corpuscular HGB Conc 32.8 g/dL (31.6-35.5); Mean Corpuscular Hemoglobin 28.9 pg (28.0-33.3); Mean Platelet Volume 12.9 fL (9.4-12.4); Monocytes # 0.7 K/mcL (0.0-1.3); Neutrophils # 8.2 K/mcL (1.6-8.9); Platelet Count 109 K/mcL (140-400); Red Blood Count 4.26 M/mcL (4.19-5.50); Red Cell Distribution Width 13.4 % (11.5-14.5); Segmented Neutrophils % 83.1 %
[2018-02-19 02:19] LABS: Calcium 8.9 mg/dL (8.6-10.3); Magnesium 2.4 mg/dL (1.6-2.6); Potassium 3.8 mEq/L (3.5-5.1)
[2018-02-19] MEDS ORDERED: Metoprolol XL (24 HR) Succ 25 MG TAB.ER.24H PO SCH (09:00)
[2018-02-19] MEDS ORDERED: Aspirin 81 MG TAB.CHEW PO SCH (09:00)
[2018-02-19] MEDS ORDERED: Furosemide 20 MG TABLET PO SCH (09:00)
[2018-02-19] MEDS ORDERED: *HR* Glimepiride 2 MG TABLET PO SCH (09:00)
[2018-02-19] MEDS ORDERED: predniSONE 20 MG TABLET PO SCH (09:00)
--- NOTE | 2018-02-19 10:41 | Internal Med History&Physical ---
Date of Encounter: 02/19/18 Time of Encounter: 10:10 Assessment and Plan (1) Chest pain Current visit: Yes Status: Acute Repeat cardiac enzymes were ordered through emergency room. Qualifiers: Chest pain type: unspecified Qualified Code(s): R07.9 - Chest pain, unspecified (2) Hypertension Current visit: No Status: Chronic Continue Toprol Qualifiers: Hypertension type: essential hypertension Qualified Code(s): I10 - Essential (primary) hypertension (3) Atrial fibrillation Current visit: No Status: Acute Chronic. Continue aspirin. He had abdominal wall rectus muscle hematoma last year and OAC was withheld and has not been started to date. Qualifiers: Atrial fibrillation type: paroxysmal Qualified Code(s): I48.0 - Paroxysmal atrial fibrillation (4) CHF exacerbation Current visit: Yes Status: Chronic BN peptide has risen from 1460 in emergency room to 2012 today. Most recent echocardiogram 04/24/2017 showed LVEF of 50-55%. He is asymptomatic at this time. Continue Toprol and Lasix. Add Imdur. Qualifiers: Heart failure type: unspecified Qualified Code(s): I50.9 - Heart failure, unspecified (5) CKD (chronic kidney disease) stage 3, GFR 30-59 ml/min Current visit: Yes Status: Chronic Creatinine 1.40 today with estimated GFR 49. Continue to monitor. (6) DM type 2 (diabetes mellitus, type 2) Current visit: No Status: Chronic Hemoglobin A1c was 9.0% on 01/01/2018. Continue Amaryl and do Accu-Cheks with SSI. Qualifiers: Diabetes mellitus senior care insulin use: without terminologist use Diabetes mellitus complication status: with circulatory complication Diabetes mellitus complication detail: with peripheral angiopathy without gangrene Qualified Code(s): E11.51 - Type 2 diabetes mellitus with diabetic peripheral angiopathy without gangrene (7) Hyperlipidemia Current visit: No Status: Chronic Lipid profile of 09/25/2017 was reviewed. Because of documented ASHD and DM 2, Lipitor will be increased to 80 mg at bedtime. Qualifiers: Hyperlipidemia type: unspecified Qualified Code(s): E78.5 - Hyperlipidemia, unspecified Internal Medicine - H&P: HPI Chief complaint: Chest pain and dyspnea Admitted From: Emergency Dept Plans for Post Hospital Care: Home History of present illness: Mr. Hadley is a 82 year old male who came to emergency room stating she had onset of dyspnea and discomfort in his chest and interscapular area the morning of February 17 while doing usual activities. It waxed and waned the entire day but never resolved. He came to emergency room the morning of February 18 and was diagnosed with heart failure. He was given Lasix and discharged home but returned to emergency room a few hours later because of feeling unimproved. He was evaluated and admitted to [facility] floor for ongoing care needs. He states the chest pain and dyspnea have resolved at present time. His cardiac history is pertinent for hypertension and known ASHD status post 4 vessel CABG approximately 2011. He denies stress test or heart cath since the CABG surgery. An echocardiogram 01/02/2017 showed LVEF of 30-35% with global LV systolic dysfunction and indeterminate diastolic function. There was mild mitral regurgitation, mild tricuspid regurgitation, and LAE at 4.90 cm. The interven tricular septum thickness was elevated at 1.49 cm. Follow-up echocardiogram 04/24/2017 showed LVEF of 50-55%. He has atrial fibrillation. He denies DVT or pulmonary embolus. Past Med Surg Social Fam HX - Past Medical History Medical history: arthritis, atrial fibrillation, CHF, COPD, coronary artery disease, diabetes, hyperlipidemia, hypertension, myocardial infarction, valvular heart disease Additional medical history: gallstones, cholecyctitis Psychiatric history: no psych history - Past Surgical History Surgical History: appendectomy, coronary bypass (CABG), herniorrhaphy, LE vascular intervention, orthopedic, other Additional surgical history: left hand surgery. left great toe amputation. right great toe partial amputation, RT GROIN FILTER - Social History Smoking Status: Never smoker Smokeless Tobacco Status: No Alcohol use: none Drug use: none - Family History Father Living Status: Hx Family Cardiac Disorders: Yes Mother Living Status: Internal Medicine - H&P: Meds Glimepiride [Amaryl] 4 mg PO DAILY 09/10/15 [History] Aspirin 81 mg PO DAILY #30 tab.chew 01/05/17 [Rx] Atorvastatin [Lipitor] 20 mg PO HS #30 tablet 01/05/17 [Rx] Furosemide [Lasix] 20 mg PO DAILY #30 tablet 01/05/17 [Rx] HYDROcodone/Acet 5/325 mg [[place] 5-325 mg] 1 tab PO Q6HR PRN #20 tablet 01/05/17 [Rx] Metoprolol XL (24 HR) Succ [Toprol Xl] 12.5 mg PO DAILY #30 tab.er.24h 01/05/17 [Rx] Doxycycline 100 mg PO BID #14 capsule 02/07/18 [Rx] Nystatin/Triamcinolone CRM [Mycolog] 1 appl TP BID #1 tube 02/07/18 [Rx] Albuterol Sulfate [Albuterol Inhaler] 2 puff IH Q6HR PRN #1 hfa.aer.ad 02/18/18 [Rx] Amoxicillin/Clavulanate [Augmentin] 875 mg PO BIDWM #20 tablet 02/18/18 [Rx] Brompheniramine/Pseudoephed/Dm [Bromfed Dm Cough Syrup] 5 ml PO Q4-6H PRN #120 syrup 02/18/18 [Rx] predniSONE [PredniSONE] 40 mg PO DAILY #10 tablet 02/18/18 [Rx] Allergy/AdvReac Type Severity Reaction Status Date / Time No Known Allergies Allergy Verified 02/18/18 05:42 All Systems PM: A 10-system review of systems was performed and is negative for pertinent findings except as documented above in the HPI. Review of systems: Review of systems from his December 2016 [facility] hospitalization were reviewed and revised as below. Gen.: His weight has decreased from 82.917 kg on 01/05/2017 to 77.111 kg on admission now. Cardiovascular: As per history of present illness Respiratory: He smoked from age [age] up to one pack per day. He denies chronic lung disease and does not use home oxygen. GI: Denies disorders of his liver gallbladder or exocrine pancreas : He denies hematuria dysuria or kidney stones Neurologic: He denies large distribution strokes or seizures. 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 He has hyperlipidemia but denies thyroid disease Hematology/oncology: He has had skin cancer removal from his face but denies internal malignancies. Anemia testing 10/12/2016 showed iron 47, transferrin saturation 20%, transferrin 171, ferritin 169, B12 246, and folate 11.4. Psychiatric: He denies anxiety or depression or other mental health issues Musk skeletal: He has DJD but no known gout or other bone joint or muscle disorders. He had left great toe amputation in the past. - Constitutional Vitals: Temp Pulse Resp BP Pulse Ox 98.7 F 72 16 124/68 96 02/19/18 06:45 02/19/18 06:45 02/19/18 06:45 02/19/18 06:45 02/19/18 06:45 Exam: Gen.: He is a well-developed well-nourished male sitting on the side of bed and appears in no acute distress. He denies pain or dyspnea. HEENT: Head is atraumatic and normocephalic. Eyes: EOMI. There is no scleral icterus. Mouth: Mucosa is moist. Neck: Supple and nontender. There is no thyromegaly or adenopathy noted. Heart: Irregularly irregular without murmurs or gallops. Lungs: No wheezes or crackles are heard. Abdomen: Soft and nontender. No masses or guarding are noted. Extremities: He has had amputation of the left great toe. There is trace edema of the dorsum of feet and lower legs bilaterally. Dorsalis pedis and posttibial pulses are trace palpable bilaterally. He has chronic venous stasis pigmentation changes of his lower legs bilaterally. Neurologic: Mental status: He is talkative and a good historian. Cranial nerves: Smile is symmetric. Forehead crackles bilaterally. Tongue protrudes midline. EOMI. Motor: There is no pronator drift. Cerebellar: Finger to nose is intact bilaterally. Skin: Warm and dry Internal Med - H&P Results - Labs CBC & Chem 7: 02/19/18 01:53 02/19/18 01:53 Labs: Short CBC 02/18/18 02/19/18 Range/Units 13:42 01:53 WBC 10.5 9.9 (4.3-11.1) K/mcL Hgb 13.1 12.3 L (12.9-16.9) g/dL Hct 40.9 37.5 (37.5-50.1) % Plt Count 109 L 109 L (140-400) K/mcL Neutrophils # 9.4 H 8.2 (1.6-8.9) K/mcL BMP 02/18/18 02/19/18 13:42 01:53 Sodium 136 134 L Potassium 4.3 3.8 Chloride 98 98 Carbon Dioxide 27 30 H BUN 26 H 32 H Creatinine 1.22 1.40 H Glucose 336 H 280 H Calcium 9.4 8.9 Cardiac Enzymes 02/18/18 02/18/18 02/19/18 Range/Units 13:42 20:10 01:53 Troponin I < 0.03 0.19 H* 0.30 H* (< 0.04) ng/mL 02/19/18 Range/Units 07:40 Troponin I 0.30 H* (< 0.04) ng/mL Urine 02/18/18 Range/Units 14:05 Urine Color Yellow (Yellow) Urine Clarity Clear (Clear) Urine pH 5.5 (5.0-8.0) pH Units Ur Specific [place] 1.015 (1.010-1.025) Urine Protein Negative (Neg-Trace) mg/dL Urine Glucose (UA) 100 H (Normal) mg/dL - Impressions ITS Impressions Chest X-Ray 02/18/18 13:32 IMPRESSION: No acute abnormality. D/ / Lance Felix MD / Lance Felix MD Interpreting Provider: Lance Felix MD
[2018-02-19 10:45] VITALS: BP 123/65
[2018-02-19] MEDS ORDERED: Isosorbide MONOnitrate (24 HR) 30 MG TAB.ER.24H PO SCH (11:15)
--- NOTE | 2018-02-19 11:21 | Discharge Summary ---
Orders not resulted at time of discharge: Pending orders 02/18/18 13:42 Culture,Blood [BC] Stat Date of Encounter: 02/19/18 Time of Encounter: 10:10 - Discharge Diagnosis (1) Chest pain Priority: Primary Status: Acute Qualifiers: Chest pain type: unspecified Qualified Code(s): R07.9 - Chest pain, unspecified (2) CHF exacerbation Priority: Secondary Status: Chronic Qualifiers: Heart failure type: unspecified Qualified Code(s): I50.9 - Heart failure, unspecified (3) Hypertension Priority: Secondary Status: Chronic Qualifiers: Hypertension type: essential hypertension Qualified Code(s): I10 - Essential (primary) hypertension (4) Atrial fibrillation Priority: Secondary Status: Chronic Qualifiers: Atrial fibrillation type: paroxysmal Qualified Code(s): I48.0 - Paroxysmal atrial fibrillation (5) CKD (chronic kidney disease) stage 3, GFR 30-59 ml/min Priority: Secondary Status: Chronic (6) DM type 2 (diabetes mellitus, type 2) Priority: Secondary Status: Chronic Qualifiers: Diabetes mellitus fci insulin use: without fci use Diabetes mellitus complication status: with circulatory complication Diabetes mellitus complication detail: with peripheral angiopathy without gangrene Qualified Code(s): E11.51 - Type 2 diabetes mellitus with diabetic peripheral angiopathy without gangrene (7) Hyperlipidemia Priority: Secondary Status: Chronic Qualifiers: Hyperlipidemia type: unspecified Qualified Code(s): E78.5 - Hyperlipidemia, unspecified Hospital course: Mr. Hadley is a 82 year old male who came to emergency room stating she had onset of dyspnea and discomfort in his chest and interscapular area the morning of February 17 while doing usual activities. It waxed and waned the entire day but never resolved. He came to emergency room the morning of February 18 and was diagnosed with heart failure. He was given Lasix and discharged home but returned to emergency room a few hours later because of feeling unimproved. He was evaluated and admitted to [facility] for ongoing care needs. Initial orders were written by the emergency room physician. I saw him on February 19 and performed a history and physical. Repeat troponin level pauline from < 0.03 on admission to 0.19 then 0.30. He remained pain-free and had no complaints of dyspnea when I saw him and performed the H&P. I explained to him I was concerned he had sustained a non-STEMI. There is likely superimposed troponin leak from demand ischemia/ heart failure as well. I recommended he have further cardiac evaluation including heart cath since one has not been performed since his 4 vessel CABG in 2011. He was agreeable to transfer to [facility] for further evaluation. - Time Spent with Patient Total time spent providing and/or coordinating discharge services: - Discharge Medications Home Medications: Glimepiride [Amaryl] 4 mg PO DAILY 09/10/15 [History] Aspirin 81 mg PO DAILY #30 tab.chew 01/05/17 [Rx] Atorvastatin [Lipitor] 20 mg PO HS #30 tablet 01/05/17 [Rx] Furosemide [Lasix] 20 mg PO DAILY #30 tablet 01/05/17 [Rx] HYDROcodone/Acet 5/325 mg [[place] 5-325 mg] 1 tab PO Q6HR PRN #20 tablet 01/05/17 [Rx] Metoprolol XL (24 HR) Succ [Toprol Xl] 12.5 mg PO DAILY #30 tab.er.24h 01/05/17 [Rx] Doxycycline 100 mg PO BID #14 capsule 02/07/18 [Rx] Nystatin/Triamcinolone CRM [Mycolog] 1 appl TP BID #1 tube 02/07/18 [Rx] Albuterol Sulfate [Albuterol Inhaler] 2 puff IH Q6HR PRN #1 hfa.aer.ad 02/18/18 [Rx] Amoxicillin/Clavulanate [Augmentin] 875 mg PO BIDWM #20 tablet 02/18/18 [Rx] Brompheniramine/Pseudoephed/Dm [Bromfed Dm Cough Syrup] 5 ml PO Q4-6H PRN #120 syrup 02/18/18 [Rx] predniSONE [PredniSONE] 40 mg PO DAILY #10 tablet 02/18/18 [Rx] Allergies/Adverse Reactions: Allergy/AdvReac Type Severity Reaction Status Date / Time No Known Allergies Allergy Verified 02/18/18 05:42 Date of admission: 02/18/18 14:50 Primary care physician: Guilherme Rodriguez, - Constitutional Vitals: Temp Pulse Resp BP Pulse Ox 97.9 F 96 18 123/65 96 02/19/18 10:00 02/19/18 10:00 02/19/18 10:00 02/19/18 10:00 02/19/18 10:00 - Patient Status Disposition: Transfer Other Condition: Good - Discharge Instructions
[2018-02-19] MEDS: Insulin LISPRO 300 UNITS/3 ML VIAL SQ SCH ×2 (12:45→16:55)
--- NOTE | 2018-02-21 10:12 | Electrocardiograph Report ---
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
== END 2018-02-19 18:11 | disposition other institution (70) ==
LOC: INPPIK 13:30 → EMEROOPIK 13:30 → INPPIK 16:00
PROVIDERS: ADMIT Internal Medicine; ATTEND Internal Medicine